=== PATIENT | male | born 1975 | race Two or more races ===

== ENCOUNTER 2020-11-16 18:27 | Emergency (ER) | payer MEDICAID, OTHER ==
[~2020-11-16] VITALS: Ht 170.2 cm; Wt 86.2 kg
[2020-11-16 19:45] LABS: Basophils # (auto) 0 10 ^3/uL (0-0.2); Basophils % (auto) 0.5 % (0.0-2.0); Eosinophils # (auto) 0 10 ^3/uL (0-0.8); Eosinophils % (auto) 0.4 % (0.0-7.0); Hematocrit 40.1 % (41.0-53.0); Hemoglobin 14.1 g/dL (13.5-17.5); Lymphocytes # (auto) 1.6 10 ^3/uL (0.4-5.4); Lymphocytes % (auto) 21.8 % (10.0-50.0); Mean Corpuscular Hemoglobin 31.9 pg (28.0-32.0); Mean Corpuscular Hgb Conc. 35.2 g/dL (32.0-36.0); Mean Corpuscular Volume 90.4 fL (80.0-100.0); Monocytes # (auto) 0.8 10 ^3/uL (0-1.3); Monocytes % (auto) 11.1 % (0.0-12.0); Neutrophils # (auto) 4.8 10 ^3/uL (1.6-8.6); Neutrophils % (auto) 66.2 % (37.0-80.0); Nucleated Red Blood Cells % 0.1 %; Platelet Count (auto) 306 10^3/uL (140-450); Red Blood Cells 4.43 10^6/uL (4.5-5.90); Red Cell Distribution Width 14.5 % (11.8-14.3); White Blood Cell 7.2 10^3/uL (4.4-10.8)
[2020-11-16] MEDS ORDERED: SODIUM CHLORIDE 0.9% 1,000 ML IV ONE (19:45)
[2020-11-16 19:54] LABS: Albumin 3.6 g/dL (3.4-5.0); Anion Gap 8 (5-15); Blood Urea Nitrogen 10 mg/dL (7-18); Calcium 8.4 mg/dL (8.5-10.1); Carbon Dioxide 24 mmol/L (21-32); Chloride 108 mmol/L (98-107); Glucose 95 mg/dL (74-106); Magnesium 2.3 mg/dL (1.6-2.6); Potassium 3.4 mmol/L (3.5-5.1); Sodium 140 mmol/L (136-145)
[2020-11-16 20:00] LABS: Alanine Aminotransferase 41 U/L (16-61); Alkaline Phosphatase 91 U/L (45-117); Aspartate Aminotransferase 28 U/L (15-37); Bilirubin, Total 0.5 mg/dL (0.2-1.0); Blood Alcohol < 3.0 mg/dL (0-5); GFR African American 130 mL/min; GFR Non-African American 107 mL/min; Total Protein 7.3 g/dL (6.4-8.2)
[2020-11-17 01:25] LABS: Salicylate < 1.7 mg/dL (2.8-20.0)
[2020-11-17 01:32] LABS: Acetaminophen < 2.0 ug/mL (10-30)
[2020-11-17 04:38] VITALS: BP 99/64
[2020-11-17 08:54] LABS: Alcohol, Urine < 3.0 mg/dL (0-10); Amphetamine Screen, Urine NEGATIVE (NEGATIVE); Barbiturate Scree,Urine NEGATIVE (NEGATIVE); Benzodiazephine Screen, Urine NEGATIVE (NEGATIVE); Cannabinoid Screen, Urine NEGATIVE (NEGATIVE); Cocaine Screen, Urine NEGATIVE (NEGATIVE); Opiate Scree,Urine NEGATIVE (NEGATIVE); Phencyclidine Screen, Urine NEGATIVE (NEGATIVE)
[2020-11-17 08:57] LABS: Urine Bacteria FEW /hpf (None Seen); Urine Blood 3+ /uL (Negative); Urine Hyaline Cast FEW /lpf (0 - 2); Urine Mucus FEW (None Seen); Urine Specific Gravity 1.026 (1.001-1.035); Urine WBC 11 /hpf (0 - 3)
== END 2020-11-17 09:56 | disposition left against medical advice (07) ==
LOC: EDBD 18:27 → ER 18:30
DX: R41.82 Altered mental status, unspecified (principal); Z20.822 Contact with and (suspected) exposure to COVID-19
CPT/HCPCS: 36415; 70450; 71045; 80053; 80307; 80320; 80329; 81001; 82550; 83605; 83735; 84484; 85025; 87426; 93005; 96360

== ENCOUNTER 2021-04-13 13:35 | Emergency (ER) | payer MEDICAID ==
[~2021-04-13] VITALS: Ht 177.8 cm; Wt 95.3 kg
[2021-04-13] MEDS ORDERED: HALOPERIDOL LACTATE 5 MG/ML INJ VIAL IM ONE (13:45)
[2021-04-13] MEDS ORDERED: diphenhdrAMINE HCL 50 MG/1 ML VL IM ONE (13:45)
[2021-04-13 14:55] VITALS: BP 102/55
== END 2021-04-13 16:54 | disposition home or self-care (01) ==
LOC: ER 13:35
DX: F23 Brief psychotic disorder (principal)
CPT/HCPCS: 96372; 99284; J1200; J1630